=== PATIENT | female | born 1955 | race Caucasian/White ===

== ENCOUNTER → 2023-05-31 12:47 | Outpatient (CLI) | payer OTHER, SELFPAY ==
[2023-05-31 16:04] LABS: Alanine Aminotransferase 21 IU/L (<35); Albumin 3.9 g/dL (3.5-5.0); Albumin Globulin Ratio 1.4 (1.0-2.8); Alkaline Phosphatase 89 U/L (38-126); Aspartate Aminotransferase 22 IU/L (14-36); BUN Creatinine Ratio 20.6 (6-22); Bilirubin Total 0.7 mg/dL (0.2-1.3); Blood Urea Nitrogen 14 mg/dL (7-17); Calcium 9.1 mg/dL (8.4-10.2); Carbon Dioxide 26 mmol/L (22-32); Chloride 107 mmol/L (98-107); Cholesterol 252 mg/dL (140-199); Estimated Glomerular Filt Rate > 60 mL/min (>60); Globulin 2.8 g/dL (1.7-4.1); Glucose 107 mg/dL (80-110); HDL Cholesterol 52 mg/dL (40-60); HEMOLYSIS < 15 (0-50); LDL Cholesterol Calculated 166 mg/dL (<100); Potassium 4.1 mmol/L (3.4-5.1); Sodium 137 mmol/L (137-145); Total Protein 6.7 g/dL (6.3-8.2); Triglycerides 171 mg/dL (35-150)
== END ==
PROVIDERS: Family Provider Family Medicine; PCP Family Medicine; Referring Provider Family Medicine; Visit Provider Family Medicine
DX: Z13.6 Encounter for screening for cardiovascular disorders (principal); Z79.899 Other long term (current) drug therapy
CPT/HCPCS: 36415; 80053; 80061

== ENCOUNTER 2023-06-06 15:43 | Emergency (ER) | payer OTHER, SELFPAY ==
[2023-06-06] VITALS (12 sets, daily range): BP systolic 145–214; BP diastolic 68–109; PULSE 58–80; RESP 12–23; TEMP 36.3; O2SAT 94–99; BMI 30.2
--- NOTE | 2023-06-06 16:02 | DI.RAD.S_ITS ---
PROCEDURE: XR CHEST 1V INDICATIONS: chest pain TECHNIQUE: One view of the chest was acquired. COMPARISON: None. FINDINGS: Surgical changes and devices: None. Lungs and pleura: There is blunting of left costophrenic angle suggestive of small left pleural effusion. No definite focal infiltrate. Mediastinum: Mediastinal contours appear normal. Heart size is mildly enlarged. Bones and chest wall: No suspicious bony lesions. Overlying soft tissues appear unremarkable. IMPRESSION: Small left pleural effusion. No definite focal infiltrate. No pneumothorax. Dictated by: Simon Amaro M.D. on 06/06/2023 at 16:32 Approved by: Simon Amaro M.D. on 06/06/2023 at 16:32
[2023-06-06] MEDS: ONDANSETRON 4 MG/2 ML INJ IV (16:26)
[2023-06-06 16:35] LABS: Add Manual Diff / Slide Review NO; Basophils Absolute Auto 100 /uL (0-100); Basophils Percent Auto 0.6 % (0-2); Eosinophils Absolute Auto 200 /uL (0-450); Eosinophils Percent Auto 2.1 % (2-4); Hematocrit 45.2 % (36-46); Lymphocytes Absolute Auto 2600 /uL (1100-4500); Lymphocytes Percent Auto 25.1 % (25-40); Mean Corpuscular HGB Conc 33.1 % (30-36); Mean Corpuscular Volume 93.4 fL (80-100); Monocytes Absolute Auto 900 /uL (0-900); Monocytes Percent Auto 8.5 % (3-14); Neutrophils Absolute Auto 6500 /uL (1500-7000); Neutrophils Percent Auto 63.7 % (50-75); Platelet Count 345 X10^3/uL (150-400); Red Blood Cell Count 4.83 X10^6/uL (4.0-5.2); White Blood Cell Count 10.3 X10^3/uL (4.5-11.0)
[2023-06-06 16:42] LABS: INR 0.9 (0.9-1.3); Prothrombin Time 10.7 SECONDS (9.4-12.5)
[2023-06-06 16:45] LABS: PTT Partial Thromboplastin Tim 30 SECONDS (25.1-36.5)
[2023-06-06 16:46] LABS: Alanine Aminotransferase 23 IU/L (<35); Albumin 4.3 g/dL (3.5-5.0); Albumin Globulin Ratio 1.3 (1.0-2.8); Alkaline Phosphatase 101 U/L (38-126); Aspartate Aminotransferase 24 IU/L (14-36); BUN Creatinine Ratio 26.2 (6-22); Bilirubin Total 0.6 mg/dL (0.2-1.3); Blood Urea Nitrogen 17 mg/dL (7-17); Calcium 9.4 mg/dL (8.4-10.2); Carbon Dioxide 23 mmol/L (22-32); Chloride 106 mmol/L (98-107); Creatine Kinase 46 U/L (30-135); Estimated Glomerular Filt Rate > 60 mL/min (>60); Globulin 3.3 g/dL (1.7-4.1); Glucose 142 mg/dL (80-110); HEMOLYSIS < 15 (0-50); Lipase 110 U/L (23-300); Potassium 3.6 mmol/L (3.4-5.1); Sodium 136 mmol/L (137-145); Total Protein 7.6 g/dL (6.3-8.2)
[2023-06-06] MEDS: MECLIZINE HCL 12.5 MG TABLET 25 MG PO (16:56)
[2023-06-06 16:58] LABS: Troponin I < 0.012 ng/mL (0.01-0.034)
--- NOTE | 2023-06-06 18:19 | ED.GENADULT ---
HPI - General Adult General Chief complaint: Hypertension Stated complaint: nausea/vomitting/hypertension Time Seen by Provider: 06/06/23 17:49 Source: patient Mode of arrival: Wheelchair History of Present Illness HPI narrative: 68-year-old female presents for nausea, vomiting, vertigo. Symptoms started after patient lay down to undergo a DEXA imaging study. Patient states that she frequently becomes vertiginous when she lays down and this is something she was actively working with her primary care physician to improve. Patient states that when she lays on her side the vertigo is improved but when she lays on her back symptoms worsen. Related Data Home Medications Medication Instructions Recorded Confirmed cholecalciferol (vitamin D3) 25 1,000 unit PO QDAY ##0 07/12/16 05/12/23 mcg (1,000 unit) tablet (Vitamin D3) Previous Rx's Medication Instructions Recorded meclizine 25 mg tablet 25 mg PO BID PRN dizziness #20 tabs 06/06/23 ondansetron 4 mg disintegrating 4 mg PO Q8H PRN nausea and 06/06/23 tablet vomiting #30 tabs Allergies Allergy/AdvReac Type Severity Reaction Status Date / Time Penicillins Allergy Unknown Verified 06/06/23 16:02 Review of Systems Review of Systems Narrative: Negative except as noted above Patient History Social History Smoking Status: Current every day smoker Smoking Status: Current every day smoker alcohol intake frequency: 0-2 drinks per day Substance Use Type: marijuana Exam Initial Vital Signs Initial Vital Signs: Vital Signs Temperature 97.4 F L 06/06/23 15:45 Pulse Rate 80 06/06/23 15:45 Respiratory Rate 20 06/06/23 15:45 Blood Pressure 214/109 H 06/06/23 15:45 Pulse Oximetry 95 06/06/23 15:45 Oxygen Delivery Method Room Air 06/06/23 15:45 Const: Awake, alert, no acute distress, nontoxic appearing Cardiac: regular rate, regular rhythm RESP: unlabored, clear bilaterally, no wheezing GI: Soft, nontender, nondistended, no rebound, no guarding MSK: Atraumatic, full range of motion, pulses equal Skin: Warm, Dry, intact, no rashes Neuro: AO x3, CN II-XII grossly intact, moves all extremities Course Orders Ordered: Discontinued Medications Droperidol (Droperidol 5 Mg/2 Ml Vial) 2.5 mg IV NOW ONE Stop: 06/06/23 19:14 Last Admin: 06/06/23 19:18 Dose: 2.5 mg Documented By: JASON Meclizine HCl (Meclizine Hcl 12.5 Mg Tablet) 25 mg PO NOW ONE Stop: 06/06/23 16:48 Last Admin: 06/06/23 16:56 Dose: 25 mg Documented By: JASON Ondansetron HCl (Ondansetron 4 Mg/2 Ml Inj) 4 mg IV NOW ONE Stop: 06/06/23 16:04 Last Admin: 06/06/23 16:26 Dose: 4 mg Documented By: JASON Vital Signs Vital signs: Vital Signs - 8 hr 06/06/23 15:45 06/06/23 16:03 06/06/23 16:10 Temperature 97.4 F L Pulse Rate 80 74 70 Respiratory Rate 20 12 19 Blood Pressure 214/109 H Pulse Oximetry 95 95 94 Oxygen Delivery Method Room Air 06/06/23 16:10 06/06/23 16:30 06/06/23 16:30 Temperature Pulse Rate 69 Respiratory Rate Blood Pressure 145/75 H 147/74 H Pulse Oximetry Oxygen Delivery Method 06/06/23 17:00 06/06/23 17:01 06/06/23 17:01 Temperature Pulse Rate 64 63 Respiratory Rate Blood Pressure 171/79 H Pulse Oximetry 95 95 Oxygen Delivery Method 06/06/23 17:30 06/06/23 17:31 06/06/23 17:31 Temperature Pulse Rate 63 58 L Respiratory Rate Blood Pressure 165/71 H Pulse Oximetry 98 99 Oxygen Delivery Method 06/06/23 18:00 06/06/23 18:00 06/06/23 18:30 Temperature Pulse Rate 62 63 Respiratory Rate Blood Pressure 157/73 H Pulse Oximetry 97 97 Oxygen Delivery Method 06/06/23 18:30 Temperature Pulse Rate Respiratory Rate Blood Pressure 153/79 H Pulse Oximetry Oxygen Delivery Method Medical Decision Making Lab Data 06/06/23 16:25 06/06/23 16:25 Labs: Lab Results 06/06/23 Range/Units 16:25 WBC 10.3 (4.5-11.0) X10^3/uL RBC 4.83 (4.0-5.2) X10^6/uL Hgb 15.0 (12.0-16.0) g/dL Hct 45.2 (36-46) % MCV 93.4 (80-100) fL MCH 31.0 (26-34) PG MCHC 33.1 (30-36) % RDW 13.0 (11.6-14.8) % Plt Count 345 (150-400) X10^3/uL Neut % (Auto) 63.7 (50-75) % Lymph % (Auto) 25.1 (25-40) % [place] % (Auto) 8.5 (3-14) % Eos % (Auto) 2.1 (2-4) % Baso % (Auto) 0.6 (0-2) % Neut # (Auto) 6500 (0218-1586) /uL Lymph # (Auto) 2600 (6787-8943) /uL [place] # (Auto) 900 (0-900) /uL Eos # (Auto) 200 (0-450) /uL Baso # (Auto) 100 (0-100) /uL PT 10.7 (9.4-12.5) SECONDS INR 0.9 (0.9-1.3) APTT 30 (25.1-36.5) SECONDS Sodium 136 L (137-145) mmol/L Potassium 3.6 (3.4-5.1) mmol/L Chloride 106 (98-107) mmol/L Carbon Dioxide 23 (22-32) mmol/L BUN 17 (7-17) mg/dL Creatinine 0.65 (0.52-1.04) mg/dL Estimated GFR > 60 (>60) mL/min BUN/Creatinine Ratio 26.2 H (6-22) Glucose 142 H (80-110) mg/dL Calcium 9.4 (8.4-10.2) mg/dL Magnesium 2.0 (1.6-2.3) mg/dL Total Bilirubin 0.6 (0.2-1.3) mg/dL AST 24 (14-36) IU/L ALT 23 (<35) IU/L Alkaline Phosphatase 101 (38-126) U/L Total Creatine Kinase 46 (30-135) U/L Troponin I < 0.012 (0.01-0.034) ng/mL Total Protein 7.6 (6.3-8.2) g/dL Albumin 4.3 (3.5-5.0) g/dL Globulin 3.3 (1.7-4.1) g/dL Albumin/Globulin Ratio 1.3 (1.0-2.8) Lipase 110 (23-300) U/L Point of Care Testing Glucose POC 129 Point of care testing: Point of Care Testing Glucose POC 129 MDM Narrative Medical decision making narrative: Vertigo provoked by lying down. Patient was currently lying on her side and states that she feels better, but is still nauseous and tired. Patient given meclizine and IV fluids with improvement in symptoms. Patient is subsequently able to tolerate p.o., ambulatory throughout the hallways without ataxia or assistance. Laboratory work reviewed, unremarkable, troponin undetectable, electrolytes within normal limits. Patient counseled to continue to follow up with her primary care physician for her vertigo, meclizine and Zofran sent to pharmacy of choice Discharge Plan Departure Patient Disposition: Home Clinical Impression: Vertigo Nausea & vomiting Qualifiers: Vomiting type: unspecified Qualified Code(s): R11.2 - Nausea with vomiting, unspecified Instructions: Nausea and Vomiting-Adult Activity Restrictions/Additional Instructions: Follow a light diet for the next several days to avoid worsening or nausea. Take the meclizine if needed for dizziness. Follow up with your primary care physician. Prescriptions: New meclizine 25 mg tablet 25 mg PO BID PRN (Reason: dizziness) Qty: 20 0RF ondansetron 4 mg tablet,disintegrating 4 mg PO Q8H PRN (Reason: nausea and vomiting) Qty: 30 0RF No Action cholecalciferol (vitamin D3) [Vitamin D3] 1,000 UNIT tablet 1,000 unit PO QDAY Qty: 0 Referrals: Diane Robles DO [Primary Care Provider] - Stand Alone Forms: Patient Portal/API
[2023-06-06] MEDS: DROPERIDOL 5 MG/2 ML VIAL 2.5 MG IV (19:18)
== END 2023-06-06 19:54 | disposition home or self-care (01) ==
PROVIDERS: Emergency Medicine; Emergency Provider Emergency Medicine; Family Provider Family Medicine; PCP Family Medicine
DX: R11.2 Nausea with vomiting, unspecified (principal); R42 Dizziness and giddiness
CPT/HCPCS: 36415; 71045; 80053; 82550; 82962; 83690; 83735; 84484; 85025; 85610; 85730; 96374; 96375; 99284; J1790; J2405

== ENCOUNTER 2023-06-08 18:55 | Emergency (ER) | payer OTHER, SELFPAY ==
[2023-06-08 19:00] VITALS: BP 194/108; PULSE 112; RESP 18; TEMP 36.7; O2SAT 99; BMI 30.2
[2023-06-08] MEDS: TET,DIPH,PERTUSS(ACELL),VAC/PF 0.5 ML SYRINGE IM (19:14)
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
[2023-06-08] MEDS: SILVER SULFADIAZINE 1% CREAM 25 GM 1 APPLIC TOP (20:43)
[2023-06-08 20:59] VITALS: BP 189/90; PULSE 78; RESP 18; TEMP 37.1; O2SAT 97
== END 2023-06-08 21:14 | disposition home or self-care (01) ==
PROVIDERS: Emergency Provider Emergency Medicine; Family Provider Family Medicine; PCP Family Medicine
DX: T20.20XA Burn of second degree of head, face, and neck, unspecified site, initial encounter (principal); X15.2XXA Contact with hotplate, initial encounter; Z23 Encounter for immunization
CPT/HCPCS: 90471; 99283; 90715

== ENCOUNTER → 2023-07-12 16:32 | Outpatient (CLI) | payer OTHER, SELFPAY ==
--- NOTE | 2023-07-12 16:34 | DI.RAD.S_ITS ---
PROCEDURE: XR CHEST 2V INDICATIONS: follow-up last CXR findings TECHNIQUE: 2 views of the chest were acquired. COMPARISON: [facility], CR, XR CHEST 1V, 06/06/2023, 16:12. FINDINGS: Surgical changes and devices: None. Lungs and pleura: Left lung base opacity is nearly resolved. No pleural effusions or pneumothorax. Mediastinum: Mediastinal contours are normal. Heart size is normal. Bones and chest wall: No suspicious bony abnormalities. Soft tissues appear unremarkable. IMPRESSION: Left lung base opacity is nearly resolved. Dictated by: Steve Almonte M.D. on 07/12/2023 at 17:08 Approved by: Steve Almonte M.D. on 07/12/2023 at 17:08
[2023-07-12 18:48] LABS: Hemoglobin A1C% w Est Avg Glu 6.4 % (4.0-6.0)
== END ==
PROVIDERS: Family Provider Family Medicine; PCP Family Medicine; Referring Provider Family Medicine; Visit Provider Family Medicine
DX: I51.7 Cardiomegaly (principal); I10 Essential (primary) hypertension; E78.00 Pure hypercholesterolemia, unspecified; R42 Dizziness and giddiness; Z72.0 Tobacco use; Z87.09 Personal history of other diseases of the respiratory system
CPT/HCPCS: 36415; 71046; 83036

== ENCOUNTER → 2024-08-10 08:31 | Outpatient (CLI) | payer OTHER, SELFPAY ==
[2024-08-10 09:49] LABS: Add Manual Diff / Slide Review NO; Basophils Absolute Auto 0 /uL (0-100); Basophils Percent Auto 0.4 % (0-2); Eosinophils Absolute Auto 200 /uL (0-450); Eosinophils Percent Auto 2.5 % (2-4); Hematocrit 42.7 % (36-46); Hemoglobin 14.6 g/dL (12.0-16.0); Lymphocytes Absolute Auto 1600 /uL (1100-4500); Lymphocytes Percent Auto 18.6 % (25-40); Mean Corpuscular HGB Conc 34.2 % (30-36); Mean Corpuscular Hemoglobin 31.1 PG (26-34); Monocytes Absolute Auto 800 /uL (0-900); Monocytes Percent Auto 9.1 % (3-14); Neutrophils Absolute Auto 6000 /uL (1500-7000); Neutrophils Percent Auto 69.4 % (50-75); Platelet Count 339 X10^3/uL (150-400); Red Blood Cell Count 4.69 X10^6/uL (4.0-5.2); Red Cell Distribution Width 13.2 % (11.6-14.8); White Blood Cell Count 8.7 X10^3/uL (4.5-11.0)
[2024-08-10 09:54] LABS: Alanine Aminotransferase 24 IU/L (<35); Albumin 4.2 g/dL (3.5-5.0); Albumin Globulin Ratio 1.6 (1.0-2.8); Alkaline Phosphatase 97 U/L (38-126); Aspartate Aminotransferase 25 IU/L (14-36); BUN Creatinine Ratio 23.9 (6-22); Bilirubin Total 0.8 mg/dL (0.2-1.3); Blood Urea Nitrogen 17 mg/dL (7-17); Calcium 9.6 mg/dL (8.4-10.2); Carbon Dioxide 28 mmol/L (22-32); Chloride 104 mmol/L (98-107); Cholesterol 178 mg/dL (140-199); Estimated Glomerular Filt Rate > 60 mL/min (>60); Globulin 2.7 g/dL (1.7-4.1); Glucose 113 mg/dL (70-99); HDL Cholesterol 57 mg/dL (40-60); HEMOLYSIS 46 (0-50); LDL Cholesterol Calculated 92 mg/dL (<100); Potassium 5.1 mmol/L (3.4-5.1); Sodium 137 mmol/L (137-145); Total Protein 6.9 g/dL (6.3-8.2); Triglycerides 144 mg/dL (35-150)
[2024-08-10 10:43] LABS: Hemoglobin A1C% w Est Avg Glu 5.7 % (4.0-6.0)
== END ==
PROVIDERS: Family Medicine; Family Provider Family Medicine; PCP Family Medicine; Referring Provider Family Medicine; Visit Provider Family Medicine
DX: R73.03 Prediabetes (principal); I10 Essential (primary) hypertension; E78.00 Pure hypercholesterolemia, unspecified
CPT/HCPCS: 36415; 80053; 80061; 83036; 85025

== ENCOUNTER → 2024-09-20 16:10 | Outpatient (CLI) | payer OTHER, MEDICAID, SELFPAY ==
--- NOTE | 2024-09-20 16:13 | DI.RAD.S_ITS ---
PROCEDURE: XR HIP W PEL IF DONE BILAT 2V INDICATIONS: hip pain TECHNIQUE: 3 views of the hip were acquired. COMPARISON: None. FINDINGS: Bones: No fractures or dislocations. No suspicious bony lesions. The visualized pelvic ring appears intact. [id number] diffuse osteopenia. Soft tissues: No suspicious soft tissue calcifications or masses. IMPRESSION: No acute focal osseous lesions or significant arthropathy seen. Dictated by: Mason Lima M.D. on 09/21/2024 at 20:32 Approved by: Mason Lima M.D. on 09/21/2024 at 20:34
== END ==
PROVIDERS: Family Provider Family Medicine; PCP Family Medicine; Referring Provider Family Medicine; Visit Provider Family Medicine
DX: M25.551 Pain in right hip (principal); M25.552 Pain in left hip; G89.29 Other chronic pain
CPT/HCPCS: 73521